=== PATIENT | female | born 1960 ===

== ENCOUNTER 2017-03-03 12:04 | Emergency (ER) | payer BC ==
[2017-03-03 12:46] VITALS: BP 153/85; PULSE 78; RESP 20; TEMP 97.8; O2SAT 99
--- NOTE | 2017-03-03 14:23 | C.PDOC ---
History Of Present Illness 56 yo female BIBA for evaluation of Right shoulder and Right ankle pain developed L[employer] after sustained mechanical fall. Pt sts, tripped on street, twisted Right ankle and fell down onto Right shoulder. Pt sts, pain is localized over Right shoulder, worse with Right shoulder movement. Otherwise, pt denies head injury, LOC, syncope, headache, dizziness, visual changes, focal deficits, N/V, neck pain, CP, SOB, dyspnea, palpitation, abd. pain, denies deformity, weakness, sensory or vascular deficits to Right UEs and LEs. AT the time of evaluation, appears comfortable, no obvious Right shoulder deformity noted. Time Seen by Provider: 03/03/17 13:06 Chief Complaint (Nursing): Upper Extremity Problem/Injury History Per: Patient Past Medical History Reviewed: Historical Data, Nursing Documentation, Vital Signs Vital Signs: Last Vital Signs Temp 97.8 F 03/03/17 12:31 Pulse 78 03/03/17 12:31 Resp 20 03/03/17 12:31 BP 153/85 H 03/03/17 12:31 Pulse Ox 99 03/03/17 12:31 - Medical History PMH: Arthritis, Gastritis, HTN Family History: States: No Known Family Hx - Social History Hx Alcohol Use: No Hx Substance Use: No - Immunization History Hx Tetanus Toxoid Vaccination: Yes Hx Influenza Vaccination: No Hx Pneumococcal Vaccination: No Review Of Systems Except As Marked, All Systems Reviewed And Found Negative. Constitutional: Negative for: Fever, Chills Eyes: Negative for: Vision Change Cardiovascular: Negative for: Chest Pain, Palpitations Gastrointestinal: Negative for: Nausea, Vomiting, Abdominal Pain Genitourinary: Negative for: Dysuria, Incontinence Musculoskeletal: Positive for: Shoulder Pain, Other (ankle pain, Right). Negative for: Neck Pain Skin: Negative for: Bruising Neurological: Negative for: Weakness, Numbness, Altered Mental Status, Headache , Dizziness Physical Exam - Physical Exam Appears: Well, Non-toxic, No Acute Distress Skin: Normal Color, Warm, Dry Head: Atraumatic, Normacephalic Eye(s): bilateral: PERRL, EOMI Ear(s): Bilateral: Normal Nose: No Discharge Oral Mucosa: Moist, No Drooling Tongue: Normal Appearing Lips: Normal Appearing Throat: No Erythema, No Exudate, No Drooling Neck: Normal ROM, Trachea Midline, No Midline Cervical Tenderness, No Paracervical Tenderness, No Step Off Deformity, Supple Chest: Symmetrical, No Deformity Cardiovascular: Rhythm Regular Respiratory: No Decreased Breath Sounds, No Stridor, No Wheezing Gastrointestinal/Abdominal: Soft, No Tenderness Back: No CVA Tenderness, No Vertebral Tenderness Extremity: Normal ROM (RUE and RLE), Tenderness (mod tenderness over posterior aspect Right shoulder. NO palpable deformity, no ecchymoses, no skin changes.), No Deformity, No Swelling Neurological/Psych: Oriented x3, Normal Speech, Normal Motor, Normal Sensation, Normal Reflexes ED Course And Treatment O2 Sat by Pulse Oximetry: 99 Pulse Ox Interpretation: Normal - Other Rad Right shoulder X-Ray: Interpreted by Me, Viewed By Me Interpretation: no acute fx or dislocation Progress Note: On re-evaluation, pt is afebrile, hemodynamicaly stable. Non- toxic. Ambulatory in ED with stable gait. Head: AT/NC. ENT: no acute findings. Neck: SUpple, (-) midline tenderness. Lungs: CTA B/L, BS equal B/L. ABd: benign. RIght shoulder: exam c/w contusion, no deformity. FAROM, no neurovascular deficits. Right ankle: FAROM, no neurovascular deficits. Imaging review (-) acute findings. Pt has clinical findings c/w Right shoulder and ankle contusion. Benjie wrap applied to Right ankle. SLing applied to Right shoulder. Pt advised. ref. to F/u with Ortho in 1-2 days for re-eval. return if any new changes. Disposition Counseled Patient/Family Regarding: Studies Performed, Diagnosis, Need For Followup, Rx Given - Disposition Referrals: Joyce Crocker MD [Medical Doctor] - Frankie Lazo III, MD [Staff Provider] - Disposition: HOME/ ROUTINE Disposition Time: 14:01 Condition: STABLE Additional Instructions: Light duty to Right shoulder for 1 week Benjie warp to Right ankle, avoid prolong walking for 1 week Follow up with Orthopedist tin 2-3 days for re-evaluation. return to ED if any worsening or new changes. Prescriptions: Methocarbamol [Robaxin] 500 mg PO TID #14 tab traMADol [Ultram] 50 mg PO TID #7 tab Instructions: Shoulder Sprain (ED), Ankle Sprain (ED) Print Language: LATVIAN - Clinical Impression Clinical Impression: Shoulder contusion, Ankle sprain
--- NOTE | 2017-03-03 16:40 | RAD ---
PROCEDURE: Radiographs of the Right Shoulder HISTORY: fall, shoulder pain COMPARISON: No prior. FINDINGS: BONES: No fracture. No dislocation. JOINTS: Mild acromioclavicular degenerative arthritis. Glenohumeral articulation unremarkable. SOFT TISSUES: Normal. OTHER FINDINGS: None. IMPRESSION: Mild acromioclavicular degenerative arthritis. No acute fracture.
== END 2017-03-03 14:38 | disposition home or self-care (01) ==
LOC: C.ER 12:04
DX: S40.011A Contusion of right shoulder, initial encounter (principal); S93.401A Sprain of unspecified ligament of right ankle, initial encounter; W01.0XXA Fall on same level from slipping, tripping and stumbling without subsequent striking against object, initial encounter; Y93.89 Activity, other specified; Y92.410 Unspecified street and highway as the place of occurrence of the external cause